=== PATIENT | male | born 1970 | race Caucasian/White ===

== ENCOUNTER 2020-03-12 18:51 | Emergency (ER) | payer OTHER, SELFPAY ==
[2020-03-12 19:05] VITALS: BP 181/112; PULSE 84; RESP 20; TEMP 36.7; O2SAT 97
--- NOTE | 2020-03-12 19:14 | ED.GENADULT ---
HPI - General Adult General Chief complaint: Dizziness Stated complaint: high blood pressure Time Seen by Provider: 03/12/20 18:54 Source: patient and RN notes reviewed Mode of arrival: ambulatory Limitations: no limitations History of Present Illness HPI narrative: patient states that he used to be on blood pressure medicine. He was supposed to start with a new physician but then the COVID outbreak started and he just never went to the doctor. He began having some dizziness and some headaches. He had not been to work in a couple of days because the dizziness he works with heavy machinery. He denies any other symptoms. blood pressure at home was 183/113. Onset (ago): day(s) (3) Associated symptoms: headaches Related Data Allergies Allergy/AdvReac Type Severity Reaction Status Date / Time No Known Allergies Allergy Verified 03/12/20 19:11 Review of Systems Review of Systems: All systems reviewed & are unremarkable except as noted in HPI and below PMFSH Past Medical History Medical History (Updated 03/12/20 @ 19:18 by Juan Francisco Amaral MD) Hypertension Surgical History Surgical History (Updated 03/12/20 @ 19:17 by Juan Francisco Amaral MD) H/O carpal tunnel repair bilateral Hx of cholecystectomy Social History Social History (Updated 03/12/20 @ 19:17 by Juan Francisco Amaral MD) Smoking status: Never smoker Alcohol intake: current Alcohol use details: occasional Substance use: never Gender identity (if verbalized by the patient): Male Exam Const: General: healthy appearing and no acute distress Nutritional Appearance: well nourished Orientation/consciousness: patient oriented x3 HENMT: Head: normal to inspection Ears: external ears normal Eyes: Conjunctivae: conjunctivae normal Pupils: Equal, round and reactive pupils present EOM: EOMs intact bilaterally Neck: Neck: normal visual inspection Resp: Effort & Inspection: normal respiratory effort Auscultation: clear to auscultation bilaterally Cardio: Rate: regular rate Rhythm: regular rhythm Heart sounds: no murmurs GI: GI Palp: Yes Soft to palpation and No Tenderness to palpation present (GI) Auscultation: normal bowel sounds Back/Spine/Pelvis: Cervical Spine: cervical ROM normal Thoracic/Lumbar Spine: thoraco-lumbar ROM normal Skin: General skin exam: normal color Rashes: no rashes Neuro: General: patient oriented x3, moves all extremities and no focal motor deficits Speech: normal speech Gait exam (Neuro): Normal gait present Extrem: General: normal to inspection and no clubbing, cyanosis or edema Psych: Appearance: grossly normal and well kempt Mental Status: mental status grossly normal Affect: normal affect Attitude: cooperative Thought content: Yes Normal thought content present Course Vital Signs Vital signs: Vital Signs Temperature 36.7 C 03/12/20 19:05 Pulse Rate 84 03/12/20 19:05 Respiratory Rate 20 03/12/20 19:05 Blood Pressure 181/112 H 03/12/20 19:05 Pulse Oximetry 97 03/12/20 19:05 Temperature 36.7 C 03/12/20 19:05 Pulse Rate 84 03/12/20 19:05 Respiratory Rate 20 03/12/20 19:05 Blood Pressure 181/112 H 03/12/20 19:05 Pulse Oximetry 97 03/12/20 19:05 Medical Decision Making Vital Signs Vital Signs: Vital Signs Temperature 36.7 C 03/12/20 19:05 Pulse Rate 84 03/12/20 19:05 Respiratory Rate 20 03/12/20 19:05 Blood Pressure 181/112 H 03/12/20 19:05 Pulse Oximetry 97 03/12/20 19:05 Temperature 36.7 C 03/12/20 19:05 Pulse Rate 84 03/12/20 19:05 Respiratory Rate 20 03/12/20 19:05 Blood Pressure 181/112 H 03/12/20 19:05 Pulse Oximetry 97 03/12/20 19:05 Discharge Plan Discharge Clinical Impression: Hypertension Qualifiers: Hypertension type: essential hypertension Qualified Code(s): I10 - Essential (primary) hypertension Patient Disposition: Home, Self-Care Condition: Stable Instructions: Hypertension (ED) Additional
[2020-03-12] MEDS: lisinopriL 20 MG TABLET PO (19:23)
[2020-03-12] MEDS: cloNIDine HCL 0.2 MG TABLET PO (19:23)
[2020-03-12 19:30] VITALS: BP 150/90; PULSE 89; RESP 20; O2SAT 96
== END 2020-03-12 19:47 | disposition home or self-care (01) ==
PROVIDERS: Emergency Provider Emergency Medicine
DX: I10 Essential (primary) hypertension (principal)
CPT/HCPCS: 99283; A9270

== ENCOUNTER 2023-11-01 10:04 | Outpatient (CLI) | payer OTHER, SELFPAY ==
--- NOTE | ~2023-11-01 | XR_ITS ---
3 VIEWS LUMBAR SPINE Ordering provider: Dolores Small NP History: . Dorsalgia, unspecified,WORSENING X6MO . Comparison: None. FINDINGS: VERTEBRAL BODIES: No visible fracture or subluxation. DISK SPACES: Normal. SOFT TISSUES: Normal. IMPRESSION: No acute osseous abnormality lumbar spine. Reviewed, dictated and finalized at location A.
[2023-11-01 10:26] LABS: Basophils Absolute Auto 0.06 K/mm3 (0.00-0.10); Basophils Percent Auto 0.8 % (0.0-1.0); Eosinophils Absolute Auto 0.28 K/mm3 (0.02-0.50); Eosinophils Percent Auto 3.5 % (1.0-6.0); Hematocrit 44.3 % (40.0-54.0); Hemoglobin 15.6 g/dL (14.0-18.0); Immature Granulocyte Absolute 0.05 K/mm3 (0.00-0.00); Immature Granulocyte Percent A 0.6 % (0.0-0.0); Lymphocytes Absolute Auto 2.23 K/mm3 (1.10-4.50); Mean Corpuscular HGB Conc 35.2 g/dL (32-36); Mean Corpuscular Hemoglobin 29.1 pg (27.0-31.0); Mean Corpuscular Volume 82.5 fL (78.0-102.0); Monocytes Absolute Auto 0.58 K/mm3 (0.10-0.90); Monocytes Percent Auto 7.3 % (2.0-11.0); Neutrophils Absolute Auto 4.77 K/mm3 (1.70-7.20); Neutrophils Percent Auto 59.8 % (50.0-70.0); Platelet Count Result 175 K/mm3 (150-420); Red Blood Count 5.37 M/mm3 (4.70-6.10); Red Cell Distribution Width 12.9 % (11.6-14.4)
[2023-11-02 13:52] LABS: Alanine Aminotransferase 40 U/L (16-63); Alkaline Phosphatase 83 U/L (46-116); Anion Gap 14 mmol/L (4-12); Aspartate Amino Transferase 21 U/L (15-37); Bilirubin,Total 0.4 mg/dL (0.00-1.00); Blood Urea Nitrogen 13 mg/dL (7-18); Calcium 8.5 mg/dL (8.5-10.1); Carbon Dioxide 25 mmol/L (21-32); Chloride 100 mmol/L (98-108); Cholesterol 172 mg/dL (0-200); Estimated Glomerular Filt Rate > 60; Glucose 85 mg/dL (70-99); HDL Direct 41 mg/dL (40-60); LDL Cholesterol Calculated 104 mg/dL (<130); Osmolality Calculated 287 mOsm/kg (285-295); Potassium 4.4 mmol/L (3.5-5.1); Sodium 139 mmol/L (136-145); Total Protein 7.1 g/dL (6.4-8.2); Triglycerides 135 mg/dL (0-150)
== END 2023-11-01 10:05 | disposition home or self-care (01) ==
PROVIDERS: PCP Nurse Practitioner Family; Visit Provider Nurse Practitioner Family
DX: I10 Essential (primary) hypertension (principal); Z13.6 Encounter for screening for cardiovascular disorders; G89.29 Other chronic pain; M54.9 Dorsalgia, unspecified
CPT/HCPCS: 36415; 72110; 80053; 80061; 85025